=== PATIENT | female | born 2000 | race Caucasian/White ===

== ENCOUNTER 2023-07-25 11:39 | Emergency (ER) | payer OTHER, SELFPAY ==
[2023-07-25 11:39] VITALS: BP 132/81; PULSE 79; RESP 18; TEMP 36.7; O2SAT 99; BMI 35.2
--- NOTE | 2023-07-25 12:10 | CT_ITS ---
PROCEDURE INFORMATION: Exam: CT Abdomen And Pelvis With Contrast Exam date and time: 07/25/2023 12:41 PM Age: 23 years old Clinical indication: Abdominal pain; Localized; Right lower quadrant (rlq); Additional info: Diffuse abd pain, worse rlq, previous laps TECHNIQUE: Imaging protocol: Computed tomography of the abdomen and pelvis with contrast. Radiation optimization: All CT scans at this facility use at least one of these dose optimization techniques: automated exposure control; mA and/or kV adjustment per patient size (includes targeted exams where dose is matched to clinical indication); or iterative reconstruction. Contrast material: ISOVUE; Contrast volume: 75 ml; Contrast route: IV; REPORTING DATA: Count of CT and Cardiac NM exams in prior 12 months: This patient has received 0 known CTs and 0 known cardiac nuclear medicine studies in the 12 months prior to the current study. COMPARISON: No relevant prior studies available. FINDINGS: Liver: Normal. No mass. Gallbladder and bile ducts: Gallbladder unremarkable Pancreas: Pancreas unremarkable Spleen: The spleen is unremarkable. Adrenal glands: Adrenal glands unremarkable. Kidneys and ureters: No hydronephrosis. Stomach and bowel: Mild stool burden Appendix: Appendix unremarkable Intraperitoneal space: Unremarkable. No free air. No significant fluid collection. Vasculature: Unremarkable. No abdominal aortic aneurysm. Lymph nodes: Unremarkable. No enlarged lymph nodes. Urinary bladder: Unremarkable as visualized. Reproductive: Unremarkable as visualized. Bones/joints: Unremarkable. No acute fracture. Soft tissues: Unremarkable. IMPRESSION: No evidence of acute abnormality.
--- NOTE | 2023-07-25 12:12 | [facility].EDGENADL ---
Discharge Plan Disposition Chief Complaint: Abdominal Pain Referrals Follow up/Referrals: Can Kumar MD [Staff Physician] - See instructions Activity Restrictions/Add. Instructions Additional Instructions/Restrictions: At this time it was felt you are safe to be discharged home. If new or worsening symptoms please do not hesitate to return the emergency department. Please call and schedule follow-up appointment with surgery for possible endoscopy as soon as you are able. Clinical Impressions Clinical Impression: Abdominal pain Instructions Patient Instructions: DI for Acute Abdominal Pain Discharge ED Provider: Adam Aguirre General Adult HPI General Chief complaint: Abdominal Pain Stated complaint: ABDOMINAL PAIN Time Seen by Provider: 07/25/23 11:56 Mode of Arrival: EMS Source of Information: Patient Limitations: No Limitations Description of Symptoms (Recalled from ER Triage Doc. by RN): Patient reports intermitten stomach pain for 2-3 weeks. States she had diarrhea the first week and then she began to have some vomiting at night. States the pain feels like burning most of the time with intermitten stabbing pain. States she came to the hospital because the pain had gotten worse overnight. 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 Onset was acute, occurring at 4 AM yesterday, generalized however worse in the right lower quadrant. Last menstrual period approximately 1 week ago. This was preceded by 2 weeks of generalized abdominal discomfort and bloating. Due to worsening pain she presents here for continued evaluation. There is associated dysuria. Patient states that her stool is package checker than normal in the setting of taking probiotics. No abnormal vaginal discharge. No other acute complaints at this time. Related Data Allergies Allergy/AdvReac Type Severity Reaction Status Date / Time sumatriptan [From Imitrex] Allergy Verified 07/25/23 11:50 [facility] Disclaimer: The information contained in this section may have been updated after the patient was seen, as this information can be updated by other users. Social History Smoking Status: Never smoker alcohol intake: never current occupational status: other Travel in the last 8 weeks: None ROS Obtained: Yes Systems reviewed as appropriate & no additional complaints except as documented Physical Exam General General appearance: alert and in no apparent distress Head Head exam: atraumatic and normocephalic Eye Eye exam: Present PERRL and EOMI ENT ENT exam: Present mucous membranes moist Neck Neck exam: Present normal inspection Chest Chest inspection: Present normal inspection and symmetric chest wall rise Respiratory Respiratory exam: Present normal lung sounds bilaterally; Absent respiratory distress Cardiovascular Cardiovascular exam: Present regular rate and normal rhythm Abdominal Exam Abdominal exam: Present soft and tenderness (Diffuse, mild, worse in right lower quadrant) Extremities Exam Extremities exam: Present normal inspection Neurological Exam Neurological exam: Present alert Psychiatric Psychiatric exam: Present normal affect Skin Skin exam: Present warm and dry Medical Decision Making Marcos Inquiry Pt receiving controlled substance: No Vital Signs: 07/25/23 11:39 07/25/23 13:28 Temperature 98.0 F Temperature Source Oral Pulse Rate 70 Pulse Rate [Radial] 79 Respiratory Rate 18 Blood Pressure 117/72 Blood Pressure [Right Arm] 132/81 Blood Pressure Mean [Right Arm] 98 Blood Pressure Source [Right Arm] Automatic Cuff Blood Pressure Position [Right Arm] Sitting 02 Sat by Pulse Oximetry 99 100 Oxygen Delivery Method Room Air Room Air Lab Data Lab Results 07/25/23 11:40: Urine Color Yellow, U
[2023-07-25 12:15] LABS: Microscopic, Urine URINE MICROSCOPIC (MICROSCOPIC)
[2023-07-25 12:16] LABS: Appearance,Urine CLEAR (Clear); Bilirubin,Urine Negative (Negative); Blood, Urine Negative (Negative); Color,Urine YELLOW (Yellow); Glucose,Urine (UA) Negative (Negative); Ketones,Urine Negative (Negative); Leukocyte Esterase,Urine Negative (Negative); Nitrate,Urine Negative (Negative); Protein,Urine Negative (Negative); Specific Gravity, Urine 1.015 (1.005-1.030); Urobilinogen,Urine 0.2 EU/dl (0.2)
[2023-07-25 12:17] LABS: Basophils % 0.5 % (0.1-2.0); Eosinophils # 0.1 K/mm3 (0.0-0.4); Eosinophils % 1.1 % (0.1-12.0); Hematocrit 38.6 % (37.0-47.0); Hemoglobin 12.5 g/dL (12.2-16.2); Lymphocytes # 3.6 K/mm3 (0.7-4.5); Lymphocytes % 53.6 % (10-50); Mean Corpuscular HGB Conc 32.3 g/dL (31.8-35.4); Mean Corpuscular Hemoglobin 25.9 pg (27.0-31.2); Mean Corpuscular Volume 80.1 fl (81-99); Mean Platelet Volume 7.8 fl (7.4-10.4); Monocytes # 0.5 K/mm3 (0.1-1.0); Monocytes % 7.2 % (1.7-9.3); Neutrophils # 2.5 K/mm3 (1.8-7.8); Neutrophils % 37.5 % (37.0-80.0); Platelet Count 364 K/mm3 (142-424); Red Blood Count 4.82 M/mm3 (4.20-5.40); Red Cell Distribution Width 14.7 % (11.5-17.5); White Blood Count 6.7 K/mm3 (4.8-10.8)
[2023-07-25 12:19] LABS: MANUAL DIFFERENTIAL MANUAL DIFFERENTIAL (MANUAL DIFF)
[2023-07-25 12:23] LABS: Alanine Aminotransferase 19 U/L (12-78); Albumin Level 4.1 g/dl (3.5-5.0); Albumin/Globulin Ratio 1.1 (1.1-1.8); Alkaline Phosphatase 80 U/L (38-126); Anion Gap 15.7 mEq/L (5-15); Aspartate Amino Transferase 23 U/L (14-36); Blood Urea Nitrogen 7 mg/dl (7-17); Calcium 9.1 mg/dl (8.4-10.2); Carbon Dioxide 25 mmol/L (22.0-30.0); Chloride 103 mmol/L (98-107); Creatinine Clearance Estimated 125 mL/min (50-200); Estimated Glomerular Filt Rate 78 ml/min (>60); GFR (African American) 94 ML/MIN (>60); Globulin 3.9 g/dL (1.3-3.2); Glucose 93 mg/dl (74-100); Lipase 127 U/L (23-300); Potassium 3.7 mmoL/L (3.5-5.1); Sodium 140 mmol/L (136-145)
[2023-07-25 12:26] LABS: Bacteria,Urine Trace /lpf; Squamous Epithelial Cell,Urine Occasional #/hpf (0-5)
[2023-07-25 12:27] LABS: Bilirubin,Total < 0.1 mg/dl (0.2-1.3); C-Reactive Protein 3.7 mg/L (0-4); HCG Qualitative, Serum Negative (Negative)
[2023-07-25 12:42] LABS: Eosinophils % 1 % (0-3); Lymphocytes % 60 % (10-50); Monocytes % 6 % (2-9); Neutrophils % 33 % (42-76); Total Cells Counted 100
[2023-07-25 12:45] LABS: Microcytosis 1+; Platelet Estimate Normal
--- NOTE | 2023-07-25 13:00 | PC.NURSE ---
Rounded on pt. No needs voiced at this time.
--- NOTE | 2023-07-25 13:25 | PC.NURSE ---
pt doing a PO challenge
[2023-07-25 13:28] VITALS: BP 117/72; PULSE 70; O2SAT 100
[2023-07-25 13:30] VITALS: BP 119/66; PULSE 62; O2SAT 100
--- NOTE | 2023-07-25 13:40 | PC.NURSE ---
Rounded on pt. No current needs.
--- NOTE | 2023-07-25 13:47 | PC.NURSE ---
pt reports abd pain after eating, notified ER
--- NOTE | 2023-07-25 13:54 | PC.NURSE ---
Dr. Aguirre at [facility] to speak with pt
[2023-07-25 14:01] VITALS: BP 110/65; PULSE 75; O2SAT 100
[2023-07-25 14:09] VITALS: BP 110/65; PULSE 74; RESP 18; TEMP 36.7; O2SAT 100
[2023-07-27 12:14] LABS: Peripheral Smear Review Scanned Result
== END 2023-07-25 14:13 | disposition home or self-care (01) ==
PROVIDERS: Emergency Provider Emergency Medicine; PCP Family Medicine
DX: R10.31 Right lower quadrant pain (principal)
CPT/HCPCS: 36415; 74177; 80053; 81001; 83690; 84703; 85007; 85025; 85060; 86140; 96361; 96374; 96375; 99285; J2405; Q9967